=== PATIENT | male | born 1995 | race Caucasian/White ===

== ENCOUNTER 2018-08-26 19:39 | Emergency (ER) | payer OTHER ==
[~2018-08-26] VITALS: Ht 188 cm; Wt 120.7 kg
[2018-08-26 20:16] LABS: BASO # 0.1 10^3/uL (0.0-0.2); BASO % 0.6 % (0.0-1.0); EOS # 0.3 10^3/uL (0.0-0.50); EOS % 3.2 % (0.0-3.0); HEMATOCRIT 41.8 % (42.0-52.0); HEMOGLOBIN 14.5 g/dl (13.5-17.5); LYMPH # 2.9 10^3/uL (1.5-6.5); LYMPH % 35.3 % (24.0-44.0); MEAN CORPUSCULAR HEMOGLOBIN 29.6 pg (27.0-33.0); MEAN CORPUSCULAR HGB CONC 34.7 g/dl (32.0-36.5); MEAN CORPUSCULAR VOLUME 85.3 fl (80.0-96.0); MONO # 0.5 10^3/uL (0.0-0.8); MONO % 6.3 % (0.0-5.0); NEUTROPHILS # 4.4 10^3/uL (1.8-7.7); NEUTROPHILS % 54.4 % (36.0-66.0); PLATELET COUNT, AUTOMATED 222 10^3/uL (150-450); WHITE BLOOD COUNT 8.1 10^3/uL (4.0-10.0)
[2018-08-26 20:42] LABS: BLOOD UREA NITROGEN 14 MG/DL (7-18); CALCIUM LEVEL 9.3 MG/DL (8.5-10.1); CARBON DIOXIDE LEVEL 31 MEQ/L (21-32); CHLORIDE LEVEL 106 MEQ/L (98-107); CREATININE FOR GFR 0.93 MG/DL (0.70-1.30); GLOMERULAR FILTRATION RATE > 60.0 (>60); GLUCOSE, FASTING 89 MG/DL (70-100); POTASSIUM SERUM 3.8 MEQ/L (3.5-5.1); SODIUM LEVEL 142 MEQ/L (136-145)
--- NOTE | 2018-08-26 21:12 | REPVR ---
EXAM: US Scrotum EXAM DATE/TIME: 08/26/2018 8:57 PM CLINICAL HISTORY: 23 years old, male; Scrotum pain; Additional info: Testicular swelling/pain TECHNIQUE: Imaging protocol: Real-time ultrasound of the scrotum and contents with color Doppler and image documentation. COMPARISON: No relevant prior studies available. FINDINGS: Right Testicle: Right testis measures 3.9 x 2.1 x 2.9 cm. Normal echogenicity and echotexture. Normal flow. Resistive index 0.56 Left Testicle: Left testis measures 4 x 1.9 x 5 cm. Normal echogenicity and echotexture. Normal flow. Resistive index 0.43. Epididymides: Right epididymal head measures 7.7 mm. Left epididymal head measures 11.1 mm. Scrotum: Bilateral thickening of the scrotal marcial likely inflammatory or infectious. No evidence of hypervascularity. IMPRESSION: 1. Bilateral thickening of the scrotal marcial likely inflammatory or infectious. 2. Otherwise unremarkable. Electronically signed by: Mike Hodges On 08/26/2018 21:12:36 PM
[2018-08-26 22:01] VITALS: BP 142/66
--- NOTE | 2018-08-26 22:14 | SMCUROLCON ---
Urology Consultation General Date of Consultation 08/26/18 Reason For Consultation This patient is seen for Testicular Swelling. History of Present Illness This is a 23 y/o M w/ no significant PMH presenting to the ER w/ penoscrotal pain and swelling after sustaining an injury during intercourse 2 days ago. He notes that his partner pulled back off of him and backward suddenly and it caused immediate pain. He notes that he did not hear a pop but he might have felt one. He notes that his erection went down and he has not had one since. He thinks that his swelling has gotten a little worse. He has not had any difficulty voiding. He denies hematuria. Past Medical History Medical History none Surgical Hstory none Allergies Allergies: Coded Allergies: No Known Allergies (Unverified , 08/26/18) Review of Systems General: Reports: Normal Appetite; Denies: Fatigue, Malaise Constitutional: Denies: Fever, Chills, Sweats, Weakness, Malaise Skin: Denies: Rash, Lesions, Breakdown, Nail Changes Pulmonary: Denies: Dyspnea, Cough Cardiovascular: Denies Chest Pain, Denies Palpitations Gastrointestinal: Denies: Nausea, Vomiting, Abdominal Pain Genitourinary: Reports: Other Symptoms (penile and scrotal swelling and pain); Denies: Dysuria, Frequency, Incontinence, Hematuria, Retention Musculoskeletal: Denies: Neck Pain, Back Pain Psych: Reports: Mood Normal; Denies: Anxiety, Depression Physical Examination General Exam: Alert, Cooperative, No Acute Distress Chest Exam: Normal air movement Heart Exam: Rate Normal, Regular Rhythm Abdomen Exam: Soft Male Exam circumcised phallus w/o lesions - no swelling and no defect palpated along the shaft, no tenderness; b/l descended testicles w/o palpable masses - mild scrotal swelling, nontender Skin Exam: Nl turgor and temperature Neuro Exam: Normal Speech Psych Exam: Mental status NL, Mood NL Vital Signs/I&O Vital Signs Date Time Temp Pulse Resp B/P (MAP) Pulse Ox O2 Delivery O2 Flow Rate FiO2 08/26/18 22:01 98.4 72 16 142/66 (91) 100 Room Air Laboratory Data 24H Labs Laboratory Tests 2 08/26/18 20:02: Urine Color YELLOW, Urine Appearance CLEAR, Urine pH 5.0, Urine Specific [place] 1.023, Urine Protein NEGATIVE, Urine Glucose (UA) NEGATIVE, Urine Ketones NEGATIVE, Urine Blood NEGATIVE, Urine Nitrite NEGATIVE, Urine Bilirubin NE GATIVE, Urine Urobilinogen 0.2, Urine Leukocyte Esterase NEGATIVE, Urine WBC (Auto) 0, Urine RBC (Auto) 2, Urine Hyaline Casts (Auto) 0, Urine Bacteria (Auto) NEGATIVE, Urine Squamous Epithelial Cells 0, Urine Sperm (Auto) 08/26/18 20:07: Immature Granulocyte % (Auto) 0.2, White Blood Count 8.1, Red Blood Count 4.90, Hemoglobin 14.5, Hematocrit 41.8L, Mean Corpuscular Volume 85.3, Mean Corpuscular Hemoglobin 29.6, Mean Corpuscular Hemoglobin Concent 34.7, Red Cell Distribution Width 12.6, Platelet Count 222, Neutrophils (%) (Auto) 54.4, Lymphocytes (%) (Auto) 35.3, Monocytes (%) (Auto) 6.3H, Eosinophils (%) (Auto) 3.2H, Basophils (%) (Auto) 0.6, Neutrophils # (Auto) 4.4, Lymphocytes # (Auto) 2.9, Monocytes # (Auto) 0.5, Eosinophils # (Auto) 0.3, Basophils # (Auto) 0.1, Nucleated Red Blood Cells % (auto) 0.0, Anion Gap 5L, Glomerular Filtration Rate > 60.0, Blood Urea Nitrogen 14, Creatinine 0.93, Sodium Level 142, Potassium Level 3.8, Chloride Level 106, Carbon Dioxide Level 31, Calcium Level 9.3 CBC/BMP Laboratory Tests 08/26/18 20:07 Red Blood Count 4.90, Mean Corpuscular Volume 85.3, Mean Corpuscular Hemoglobin 29.6, Mean Corpuscular Hemoglobin Concent 34.7, Red Cell Distribution Width 12.6, Neutrophils (%) (Auto) 54.4, Lymphocytes (%) (Auto) 35.3, Monocytes (%) (Auto) 6.3 H, Eosinophils (%) (Auto) 3.2 H, Basophils (%) (Auto) 0.6, Neutrophils # (Auto) 4.4, Lymphocytes # (Auto) 2.9, Monocytes # (Auto) 0.5, Eosinophils # (Auto) 0.3, Basophils # (Auto) 0.1, Calcium Level 9.3 Assessment This is a 23 y/o M w/ a penile injury during intercourse. Based on exam this does not appear to be a penile fracture. A scrotal US was notable for scrotal wall thickening, likely due to edema from the trauma. Plan - no surgery needed - recommend ice and pain medication as needed - patient should f/u in urology clinic in 2-3 wks, but was advised to call earlier if symptoms worsen ASIF MORALES MD Aug 26, 2018 22:14
== END 2018-08-26 22:03 | disposition home or self-care (01) ==
LOC: M ED 19:39
DX: S30.21XA Contusion of penis, initial encounter (principal); X58.XXXA Exposure to other specified factors, initial encounter; Y92.89 Other specified places as the place of occurrence of the external cause; F17.210 Nicotine dependence, cigarettes, uncomplicated

== ENCOUNTER 2019-06-07 23:54 | Emergency (ER) | payer OTHER ==
[~2019-06-07] VITALS: Ht 190.5 cm; Wt 113.6 kg
[2019-06-08 00:26] LABS: HEMATOCRIT 44.5 % (42.0-52.0); HEMOGLOBIN 15.4 g/dl (13.5-17.5); MEAN CORPUSCULAR HEMOGLOBIN 28.8 pg (27.0-33.0); MEAN CORPUSCULAR HGB CONC 34.6 g/dl (32.0-36.5); MEAN CORPUSCULAR VOLUME 83.2 fl (80.0-96.0); PLATELET COUNT, AUTOMATED 227 10^3/uL (150-450); RED BLOOD COUNT 5.35 10^6/uL (4.30-6.10); WHITE BLOOD COUNT 6.2 10^3/uL (4.0-10.0)
[2019-06-08] MEDS ORDERED: NS 1,000 ML IV ONE (00:30)
[2019-06-08 00:48] LABS: AMPHETAMINES LEVEL URINE NEGATIVE (NEGATIVE); BARBITURATES URINE NEGATIVE (NEGATIVE); BENZODIAZEPINES URINE NEGATIVE (NEGATIVE); CANNABINOIDS URINE NEGATIVE (NEGATIVE); COCAINE METABOLITE URINE NEGATIVE (NEGATIVE); METHADONE URINE NEGATIVE (NEGATIVE); OPIATES URINE NEGATIVE (NEGATIVE); PHENCYCLIDINE URINE NEGATIVE (NEGATIVE)
[2019-06-08 00:58] LABS: ACETAMINOPHEN LEVEL < 2.0 UG/ML (10.0-30.0); ALBUMIN 4.4 GM/DL (3.2-5.2); ALT/SGPT 40 U/L (12-78); BILIRUBIN,DIRECT 0.1 MG/DL (0.0-0.2); BILIRUBIN,TOTAL 0.3 MG/DL (0.2-1.0); BLOOD UREA NITROGEN 14 MG/DL (7-18); CALCIUM LEVEL 8.6 MG/DL (8.5-10.1); CARBON DIOXIDE LEVEL 23 MEQ/L (21-32); CHLORIDE LEVEL 109 MEQ/L (98-107); CREATININE FOR GFR 0.96 MG/DL (0.70-1.30); ETHYL ALCOHOL (ETHANOL) 0.225 % (0.000-0.010); GLOMERULAR FILTRATION RATE > 60.0 (>60); GLUCOSE, FASTING 106 MG/DL (70-100); POTASSIUM SERUM 3.4 MEQ/L (3.5-5.1); SALICYLATE LEVEL < 1.7 MG/DL (5.0-30.0); SODIUM LEVEL 142 MEQ/L (136-145); TOTAL PROTEIN 7.9 GM/DL (6.4-8.2)
[2019-06-08] MEDS ORDERED: diphenhydrAMINE 50MG/ML VIAL (J1200) IM ONE (01:00)
[2019-06-08] MEDS ORDERED: LORazepam 2 MG/ML VIAL (J2060) IM ONE (01:00)
[2019-06-08] MEDS ORDERED: HALOPERIDOL 5MG/ML VIAL (J1630 PER 1) IM ONE (01:00)
--- NOTE | 2019-06-08 06:31 | ECGEPIP ---
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
[2019-06-08 18:59] VITALS: BP 154/78
== END 2019-06-08 19:01 ==
LOC: M ED 23:54
DX: T14.91XA Suicide attempt, initial encounter (principal); R94.31 Abnormal electrocardiogram [ECG] [EKG]
CPT/HCPCS: 80048; 80076; 80307; 84443; 85027; 93005; 96360; 96372; 99285; G0480; J1200; J1630; J2060